=== PATIENT | female | born 2000 | race Two or more races ===

== ENCOUNTER 2024-04-13 14:38 | Emergency (ER) | payer OTHER ==
[~2024-04-13] VITALS: Ht 149.9 cm; Wt 51.3 kg
[2024-04-13 15:58] LABS: HEMOGLOBIN 13.6 g/dL (12.0-15.00); MEAN CELL VOLUME 84.7 fL (80.00-100.00); MEAN CORPUSCULAR HEMOGLOBIN 29.5 pg (27.00-32.0); MEAN CORPUSCULAR HGB CONC 34.9 g/dl (32.0-36.0); PLATELET COUNT 201 K/uL (150-450); RED CELL DISTRIBUTION WIDTH 12.8 % (11.5-14.5)
[2024-04-13 16:15] LABS: CALCIUM 8.8 mg/dL (8.5-10.1); CREATININE SERUM 0.73 mg/dL (0.55-1.02); GFR 97.94; POTASSIUM 3.78 mEq/L (3.5-5.1)
[2024-04-13 16:17] LABS: PH,URINE 5.5 (5.0-8.0); URINE APPEARANCE Cloudy; URINE BILIRRUBIN Negative (NEGATIVE); URINE BLOOD Moderate; URINE COLOR Yellow; URINE GLUCOSE Negative (NEGATIVE); URINE LEUKOCYTE Negative; URINE NITRATE Negative; URINE PROTEIN Negative (NEGATIVE)
[2024-04-13 16:23] LABS: URINE BACTERIA 6791.1 uL (0.0-1933); URINE RBC 6.2 uL (0.0-20.8); URINE WBC 47.1 uL (0.0-23.2)
[2024-04-13 16:44] LABS: URINE CRYSTALS FEW /HPF; URINE MUCUS MODERATE
== END 2024-04-13 19:56 | disposition home or self-care (01) ==
LOC: ER 14:39
PROVIDERS: General Practice
DX: R10.9 Unspecified abdominal pain (principal)

== ENCOUNTER 2025-08-21 10:16 | Outpatient (CLI) | payer OTHER | END 2025-08-21 10:20 | disposition home or self-care (01) | LOC: SONOGRAMA 10:16 | PROVIDERS: ATTEND Emergency Medicine | DX: N60.29 Fibroadenosis of unspecified breast (principal) ==